=== PATIENT | female | born 1925 | race Caucasian/White ===

== ENCOUNTER → 2017-06-15 | Outpatient (CLI) | payer MEDICARE, OTHER ==
[~2017-06-15] MED LIST: COREG3.125 MG PO; EXFORGE 5-160 M1 TAB PO; FOSAMAX70 MG PO; SYMBICORT HHN; VICODIN 5/1 TAB 5/50 PO
--- NOTE | ~2017-06-15 | MY29 ---
[facility] A Service of [facility] RADIOLOGY TEXT RESULTS PATIENT: LUIS CARLOS HAUSER LOCATION: [facility] : [birth year] UNIT #: [id number] AGE: [address]: Hans Graham MD SEX: F ORDER DR: [id number] [facility] [address] [place], [place] [address] [id number] O MR#: [id number] Acc #: [id number] NAME: LUIS CARLOS HAUSER : 1925 SEX: F STUDY DATE/TIME: 06/15/2017 14:09 UNIT: [facility] ROOM: STUDY DESCRIPTION: MY RAZ SCREENING W/ CAD BILAT Attending Physician: Hans Graham M.D. Referring Physician: Hnas Graham M.D. Ordering Physician: Hans Graham M.D. Primary Care Physician: Hans Graham M.D. MEDICAL IMAGING REPORT This report is preliminary unless electronic signature is present EXAM Digital screening mammogram 06/15/2017 [facility]. HISTORY 89-year-old woman, positive family history, sister. Prior bilateral breast biopsies. Annual screen. COMPARISON Mammograms date to 03/05/2007 with most recent 05/02/2016. FINDINGS Digital imaging of each breast was completed utilizing screening protocol. A number of mole markers are placed. Review includes FDA-approved CAD device. Breast parenchyma is predominantly fatty replaced with residual parenchymal opacities in each breast. I see no interval occurring mass. There are no suspicious microcalcifications and no architectural deformity. IMPRESSION Negative mammogram. Annual screening is optional at this age. Patients over the age of 40 are entered into a reminder system with target due date for the next mammogram. BIRADS: 1 Negative Dictated by... Rafal De La Rosa M.D. THIS IS AN ELECTRONICALLY VERIFIED REPORT Rafal De La Rosa M.D. at 06/16/2017 8:58 AM SEVERINO/elizabeth TD: 06/16/2017 08:08 [facility] A Service of [facility] RADIOLOGY TEXT RESULTS PATIENT: LUIS CARLOS HAUSER LOCATION: [facility] #: [id number] : [birth year] UNIT #: [id number] AGE: [address]: Hans Graham MD SEX: F ORDER DR: JOB #: [id number] MEDICAL IMAGING REPORT Page 1 of 1 COPY
== END | disposition home or self-care (01) ==
LOC: CWCC 05-04 13:00
DX: Z12.31 Encounter for screening mammogram for malignant neoplasm of breast (principal); Z80.3 Family history of malignant neoplasm of breast
CPT/HCPCS: G0202